=== PATIENT | male | born 1990 | race Caucasian/White ===

== ENCOUNTER → 2020-09-16 | Outpatient (CLI) | payer OTHER ==
--- NOTE | 2020-09-16 08:56 | RAD ---
EXAMINATION: US US ABDOMEN COMPLETE CLINICAL HISTORY: Chronic left upper quadrant pain TECHNIQUE: Grayscale sonographic imaging of the abdomen obtained with color Doppler imaging and spect ral Doppler analysis as indicated. COMPARISON: None FINDINGS: Pancreas: Poorly visualized due to overlying bowel gas. Liver: - Echotexture: Homogeneous - Echogenicity: Increased, suggestive of steatosis - Surface contour: Smooth - Lesions: None Biliary: No intrahepatic biliary duct dilation. - CBD: Not visualized - Gallbladder: Moderately distended measuring up to 5 cm in diameter. - Contents: No cholelithiasis - Wall: Normal - Other: No pericholecystic fluid. Spleen: - Craniocaudal length: 13.6, mildly enlarged - Lesions: None Right Kidney: - Renal length: 11.4 cm - Parenchyma: Normal parenchymal echogenicity. Normal parenchymal thickness. - Collecting system: No hydronephrosis. - Calculus: No echogenic, shadowing calculus. - Lesion: None Left Kidney: - Renal length: 11.7 cm - Parenchyma: Normal parenchymal echogenicity. Normal parenchymal thickness. - Collecting system: No hydronephrosis. - Calculus: No echogenic, shadowing calculus. - Lesion: None IVC: Poorly visualized Abdominal Aorta: Poorly visualized Ascites: None. IMPRESSION: Mild splenomegaly. Findings suggestive of hepatic steatosis. Nonvisualized common bile duct. Poorly visualized pancreas. Electronically signed by: Gabe Allen DO (09/16/2020 8:53 AM) [id number]
== END ==
LOC: US 09:47
PROVIDERS: ATTEND Nurse Practitioner Gerontology
DX: R16.1 Splenomegaly, not elsewhere classified (principal)
CPT/HCPCS: 76700

== ENCOUNTER → 2020-10-14 | Outpatient (CLI) | payer OTHER ==
--- NOTE | 2020-10-14 11:17 | RAD ---
EXAMINATION: CT ABDOMEN W/O CONTRAST CLINICAL HISTORY: Chronic left upper quadrant abdominal pain. History of hernia repair. TECHNIQUE: Serial axial images obtained through the abdomen without intravenous contrast. Sagittal an d coronal reconstructions performed from the axial data set. CT Dose Reduction Employed: One or more of the following individualized dose reduction techniques wer e utilized for this examination: 1. Automated exposure control 2. Adjustment of the mA and/or kV ac cording to patient size 3. Use of iterative reconstruction technique. COMPARISON: Abdominal ultrasound 09/16/2020 FINDINGS: Partially visualized heart and lung bases unremarkable. Mildly enlarged liver measuring up to 17.0 cm in craniocaudal length and moderate steatosis. Focal fa tty sparing along the gallbladder fossa. Moderately distended gallbladder. Mildly enlarged spleen ruddy suring 13.8 cm in craniocaudal length. Pancreas, adrenal glands, and kidneys unremarkable. Mild colonic diverticulosis without evidence of diverticulitis in the visualized colon. No dilated magnus wel visualized. Partially visualized appendix within normal limits. No evidence of abdominal aortic aneurysm. No lymphadenopathy. No evidence of acute osseous abnormality. IMPRESSION: Mild hepatosplenomegaly with moderate hepatic steatosis. Partially visualized colonic diverticulosis without evidence of diverticulitis. Electronically signed by: Gabe Allen DO (10/14/2020 11:15 AM) [id number]
== END ==
LOC: CT 10:11
PROVIDERS: ATTEND Nurse Practitioner Gerontology
DX: K57.30 Diverticulosis of large intestine without perforation or abscess without bleeding (principal); K76.0 Fatty (change of) liver, not elsewhere classified; R16.2 Hepatomegaly with splenomegaly, not elsewhere classified
CPT/HCPCS: 74150